=== PATIENT | male | born 1980 | race Caucasian/White ===

== ENCOUNTER 2024-08-23 14:07 | Emergency (ER) | payer OTHER, SELFPAY ==
[2024-08-23 14:23] VITALS: BP 144/113; PULSE 115; TEMP 36.8; O2SAT 97; BMI 30.7
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
[2024-08-23] MEDS: TIZANIDINE HCL 4 MG TABLET PO (14:54)
[2024-08-23] MEDS: OXYCODONE HCL 5 MG TABLET PO (14:54)
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
== END 2024-08-23 16:20 | disposition home or self-care (01) ==
PROVIDERS: Emergency Provider Emergency Medicine; PCP Family Medicine
DX: Z48.01 Encounter for change or removal of surgical wound dressing (principal)
CPT/HCPCS: 73090; 73130; 99283